=== PATIENT | male | born 1960 | race Caucasian/White ===

== ENCOUNTER 2019-09-15 18:50 | Inpatient (IN) | payer OTHER ==
[~2019-09-15] VITALS: Ht 172.7 cm; Wt 71.9 kg
--- NOTE | 2019-09-15 19:24 | NUR ---
PT BIB FAMILY FOR C/O ABDOMINAL PAIN THAT BEGAN 2 HOURS AGO. PER FAMILY HE HAS HAD TWO EPISIODES OF VOMITING AND NO DIARRHEA. PT DOES PERITONEAL DIALYSIS DAILY EVERY NIGHT AT HOME. PER PT HE HAS NOT DONE HIS DAILY DIALYSIS TODAY. PT REPORTS HE DOES NOT URINATE ANYMORE PT DENIES ANY CHANGE IN DIET RECENTLY. PT IS A/O X4. PT RESPS ARE E/U. PT IS PLACED IN ED GOWN AND HOOKED ONTO CM. AWITING MSE.
--- NOTE | 2019-09-15 20:19 | NUR ---
DR KELLY AT BEDSIDE FOR MSE.
--- NOTE | 2019-09-15 20:36 | NUR ---
PT PROVIDED SMALL URINE SAMPLE AT THIS TIME. DR KELLY AWARE OF PATIENTS OLIGURIA. TO RUN URINE DIP. DAUGHTER TO RETURN HOME TO PROVIDE CAP FOR PD CATHETER IN ORDER TO SEND FLUID FOR TESTING. DR KELLY AWARE.
--- NOTE | 2019-09-15 20:50 | NUR ---
LAB AT BEDSIDE.
[2019-09-15 21:20] LABS: BASOPHIL % 0.1 % (0-2); PLATELET COUNT 261 x10^3mcL (130-400); RED CELL DISTRIBUTION WIDTH 13.7 % (11.5-14.5)
--- NOTE | 2019-09-15 21:24 | NUR ---
PATIENT DENIES PAIN AT THIS TIME. IN POSITION OF COMFORT. IVF REMAINS INFUSING TO LFA.
[2019-09-15 21:45] LABS: BILIRUBIN TOTAL 0.26 mg/dL (0.20-1.00); CALCIUM 8.9 mg/dL (8.5-10.1); CARBON DIOXIDE 26.5 mmol/L (21-32); POTASSIUM SERUM 3.3 mmol/L (3.5-5.1)
[2019-09-15 21:48] LABS: ALBUMIN 2.7 g/dL (3.4-5.0); CREATININE SERUM 11.5 mg/dL (0.7-1.3)
--- NOTE | 2019-09-15 22:04 | NUR ---
PATIENT TAKEN TO CT.
--- NOTE | 2019-09-15 22:38 | NUR ---
FLUID COLLECTED FROM PD CATHETER USING STERILE TECHNIQUE. FLUID IS STRAW COLORED AND CLOUDY. SENT TO LAB FOR FURTHER TESTING. DR LETICIA PAUL.
[2019-09-15 23:50] LABS: APPEARANCE FLUID CLOUDY; SOURCE FLUID PERITONEAL
[2019-09-15 23:51] LABS: COLOR FLUID PALE YELLOW
[2019-09-15 23:54] LABS: RBC FLUID 200 /cumm; WBC FLUID 17850 /cumm
[2019-09-15 23:56] LABS: LYMPHOCYTE FLUID 10 %
--- NOTE | 2019-09-16 00:24 | NUR ---
PT MEDICATED WITH FIRST ANTIBIOTIC AT THIS TIME.
--- NOTE | 2019-09-16 01:08 | NUR ---
REPORT CALLED AND GIVEN TO GUANAKITO JACOBS.
--- NOTE | 2019-09-16 01:17 | NUR ---
RECEIVED PT FROM ED VIA GUERENY, CAME IN DUE TO ABDOMINAL PAIN. AAOX4. DENIES HEADACHE/DIZZINESS. NO SOB NOTED, LUNG SOUNDS CTA. DENIES CHEST PAIN/PRESSURE. C/O 8/ LEFT ABDOMINAL PAIN, DENIES NAUSEA/VOMITING. LAST BM=09/15/19, FORMED. W/ PERITONEAL DIALYSIS ACCESS ON THE LEFT ABDOMEN, W/ GAUZE DRESSING CDI. ABDOMEN IS SOFT AND ROUND. IV SITE PATENT AND INTACT. SIDE RAILS UPX2. CALL LIGHT ON REACH. ENDORSED TO PRIMARY NURSE ARLENE FOR CONTINUITY OF CARE
[2019-09-16 01:26] VITALS: BP 141/79
--- NOTE | 2019-09-16 01:34 | NUR ---
PT RESTING COMFORTABLY IN BED. NO ACUTE DISTRESS NOTED. EVEN AND UNLABORED RESPIRATIONS ON RA. MEDSURG PT. IV PATENT AND INTACT RUNNING VANCO PER EMAR. C/O 05/08 PAIN MEDICATED PER EMAR. PERITONEAL DIALYSIS CATHETER TO LLQ, DRESSING CDI. NO S/S OF INFECTION. INSTRUCTED ON USE OF CALL LIGHT, ORIENTED TO ROOM AND SURROUNDINGS. BED IN LOWEST POSITION. SIDE RAILS UPX2. CALL LIGHT WITHIN REACH. WILL REASSESS FOR PAIN AND CONTINUE TO MONITOR.
--- NOTE | 2019-09-16 02:05 | NUR ---
EVEN AND UNLABORED RESPIRATIONS ON 2LNC, ON TELE# 22 READING SR 94 WITH BBB, ELEVATED TWAVE, ON CONTINUOUS PULSE OX READING 96-97%. SITTER AT BEDSIDE FOR SAFETY. BED IN LOWEST POSITION. SEIZURE PRECAUTION IN PLACE. CALL LIGHT WITHIN REACH. WILL CONTINUE TO MONITOR.
[2019-09-16 02:10] LABS: CHOLESTEROL/HDL RATIO 3.5
[2019-09-16 02:12] LABS: T3 TOTAL 1.15 ng/mL
[2019-09-16 03:11] LABS: FREE T4 1.23 ng/dL (0.76-1.46); FREE THYROXINE INDEX 3.2 ug/dL (1.4-4.5); T4(THYROXINE) 8.9 ug/dL (4.7-13.3)
[2019-09-16 04:50] VITALS: BP 134/68
[2019-09-16 06:41] LABS: BASOPHIL % 0.2 % (0-2); PLATELET COUNT 241 x10^3mcL (130-400); RED CELL DISTRIBUTION WIDTH 13.9 % (11.5-14.5)
[2019-09-16 06:50] LABS: CALCIUM 8.4 mg/dL (8.5-10.1); CARBON DIOXIDE 23.3 mmol/L (21-32); MAGNESIUM 1.5 mg/dL (1.8-2.4); POTASSIUM SERUM 3.8 mmol/L (3.5-5.1)
[2019-09-16 06:52] LABS: CREATININE SERUM 11.9 mg/dL (0.7-1.3)
--- NOTE | 2019-09-16 07:05 | NUR ---
RECEIVED PT FROM NIGHT NURSE. PT IS LAYING DOWN IN BED WITH HOB UP. PT LOOKS TO BE IN NO ACUTE DISTRESS AT THIS TIME AND DENIES ANY PAIN. RESPIRATIONS EVEN AND UNLABORED ON ROOM AIR. IV SITE PATENT WITH NO SIGNS OF ERYTHEMA OR SWELLING. PERITONEAL DIALYSIS SITE TO [facility]. CALL LIGHT WITHIN REACH. WILL CONTINUE TO MONITOR.
--- NOTE | 2019-09-16 07:29 | NUR ---
PT SLEPT IN INTERVALS THROUGHOUT THE SHIFT. ALL NEEDS TENDED TO AND MET. ALL SCHEDULED MEDICATIONS GIVEN. C/O ABD PAIN MEDICATED PER EMAR. IVL PATENT AND INTACT. PERITONEAL DIALYSIS CATHETER IN PLACE, DRESSING CDI. WILL ENDORSE TO ONCOMING SHIFT.
[2019-09-16 08:33] VITALS: BP 142/73
--- NOTE | 2019-09-16 11:55 | NUR ---
PT IS LAYING DOWN IN BED WITH HOB UP. PT LOOKS TO BE IN NO ACUTE DISTRESS AT THIS TIME AND DENIES ANY PAIN. FAMILY MEMBER AT BEDSIDE. WILL CONTINUE TO MONITOR
[2019-09-16 12:25] VITALS: BP 136/73
[2019-09-16 16:45] VITALS: BP 139/65
--- NOTE | 2019-09-16 18:25 | NUR ---
DIALYSIS NURSE AT BEDSIDE. PROVIDED WITH ORDER AND LABS. PT LOOKS TO BE IN NO ACUTE DISTRESS AT THIS TIME. WILL CONTINUE TO MONITOR.
--- NOTE | 2019-09-16 18:52 | NUR ---
PT IS LAYING DOWN IN BED WITH HOB UP RESTING. PT IS RECEIVING PD AT THIS TIME, DIALYSIS NURSE AT BEDSIDE. RESPIRATIONS EVEN AND UNLABORED ON ROOM AIR. IV SITE PATENT WITH NO SIGNS OF ERYTHEMA OR SWELLING. PT STATES PAIN TO ABD IS TOLERABLE AT THIS TIME. PD CATHETER PRESENT TO [facility] AND IS PATENT. FAMILY MEMBER AT BEDSIDE. CALL LIGHT WITHIN REACH. WILL ENDORSE TO ONCOMING SHIFT.
[2019-09-16 19:34] VITALS: BP 127/64
--- NOTE | 2019-09-16 20:37 | NUR ---
RECEIVED PT IN BED AAOX4 , FIJIAN SPEAKING ONLY , FAMILY AT THE BEDSIDE AT THE MOMENT ,LUNG SOUNDS CTA , ABD SOFT TENDER TO TOUCH , BS ACTIVE X4, PD CATHETER PATENT , FOR HD DAILY , [T WITLL HAVE MANUAL HD TODAY PER HD NURSE . HL PATENT , FLUSHING WELL .
--- NOTE | 2019-09-17 04:21 | NUR ---
PT'S IN BED WITH EYES CLOSED .
[2019-09-17 05:07] VITALS: BP 142/71
--- NOTE | 2019-09-17 05:19 | NUR ---
AT 2230 HD NURSE DRAINED PT AND FILL PT ORDERED .
--- NOTE | 2019-09-17 05:56 | NUR ---
I HAVE REVIEWED THE DATA COLLECTION BY BRAYAN (NAME):ALEJANDRO LOO ENTERED ON (DATE/TIME):09/16 I CONCUR WITH THE DATA AND ANY EXCEPTIONS OR COMMENTS ARE LISTED BELOW:
[2019-09-17 06:28] LABS: BASOPHIL % 0.4 % (0-2); PLATELET COUNT 253 x10^3mcL (130-400); RED CELL DISTRIBUTION WIDTH 13.4 % (11.5-14.5)
--- NOTE | 2019-09-17 06:31 | NUR ---
NO CHANGES OF CONDITION NOTED , ALL DUE MEDS GIVEN NO REACTION NOTED, GL PATENT , PD TUBING INTACT ,[facility] HD NURSE IS AWARE THAT PT HAS 2 EXCHANGES PD , STATED ILL BE THERE AT 10AM ,PT'LL BE OK NOT TO WORRY , WILL ENDORSE TO AM NURSE TO F/U .PT DENY PAIN AT THE MOMENT ,
[2019-09-17 07:18] LABS: CALCIUM 8.8 mg/dL (8.5-10.1); CARBON DIOXIDE 23.7 mmol/L (21-32); PHOSPHOROUS 6.9 mg/dL (2.5-4.9); POTASSIUM SERUM 3.4 mmol/L (3.5-5.1)
[2019-09-17 07:22] LABS: CREATININE SERUM 12.9 mg/dL (0.7-1.3)
[2019-09-17 07:23] VITALS: BP 149/71
--- NOTE | 2019-09-17 09:16 | NUR ---
RECIEVED REPORT FROM NOC NURSE. ATIENT CURRENTLY AWAKE, ALERT, AND IN BED. PATIENT IS TRISTANIAN SPEAKING. NO REPORT OF PAIN AT THIS TIME. IV TO THE LEFT FOREARM AND IS SALINE LOCKED. BED IN THE LOW POSITION. SAFETY PRECAUTIONS IN PLACE. CALL LIGHT WITHIN REACH.
[2019-09-17 10:56] VITALS: BP 151/76
[2019-09-17 11:32] VITALS: BP 156/76
[2019-09-17 16:23] VITALS: BP 135/75
--- NOTE | 2019-09-17 17:50 | NUR ---
PATIENT CURRENTLY RECIEVING PD. PD FLUID SPECIMEN OBTAINED AND SENT TO LAB FOR CULTURE. NO REPORT OF PAIN AT THIS TIME. DAUGHTER AT BEDSIDE. WILL CONTINUE TO TREAT FOR PAIN AND ENDORSE FURTHER CARE TO NIGHT NURSE.
--- NOTE | 2019-09-17 19:20 | NUR ---
REC'D PT FROM DAY NURSE. DAUGHTER AT BEDSIDE. PT RESTING IN BED. AAOX4, SPEECH CLEAR, FOLLOWS COMMANDS. MED SURG, NO TELE. DENIES CP, DIZZINESS, OR PALPITATIONS. DENIES RESP DISTRESS OR SOB. BREATHING EVEN/UNLABORED ON RA. NO EDEMA NOTED. ABD SOFT/ROUND. DENIES PAIN AT REST. C/O ABD TENDERNESS UPON PALPATION. PD IN PROGRESS TO LLQ PD CATHETER. RECEIVED NIGHTLY PD. ANURIC. IV TO LFA FLUSED AND PATENT, SITE WNL. CALL LIGHT WITHIN REACH, BED AT LOWEST POSITION. WILL ENDORSE TO DAY NURSE.
[2019-09-17 20:47] VITALS: BP 152/79
--- NOTE | 2019-09-18 00:50 | NUR ---
PD COMPLETED- 500 ML OUT. PT C/O LLQ SEVERE ABD PAIN 10/10. MORPHINE GIVEN PER ORDER. CALL LIGHT WITHIN REACH, BED AT LOWEST POSITION. WILL CONTINUE TO MONITOR.
--- NOTE | 2019-09-18 02:04 | NUR ---
PT RESTING IN BED WITH EYES CLOSED. SNORING. NO SIGNS OF DISTRESS OR PAIN NOTED. BREATHING EVEN/UNLABORED ON RA. CALL LIGHT WITHIN REACH, BED AT LOWEST POSITION. WILL CONTINUE TO MONITOR.
[2019-09-18 05:05] VITALS: BP 155/85
--- NOTE | 2019-09-18 05:52 | NUR ---
PT RESTING IN BED WITH EYES CLOSED. AWAKENS WITH VERBAL STIMULI. BREATHING EVEN/UNLABORED ON RA. PT DENIES ABD PAIN AT THIS TIME. NO SIGNIFICANT CHANGES. CALL LIGHT WITHIN REACH, BED AT LOWEST POSITION. WILL ENDORSE TO DAY NURSE.
[2019-09-18 06:05] LABS: BASOPHIL % 0.2 % (0-2); PLATELET COUNT 289 x10^3mcL (130-400); RED CELL DISTRIBUTION WIDTH 13.6 % (11.5-14.5)
[2019-09-18 07:04] LABS: CALCIUM 8.8 mg/dL (8.5-10.1); CARBON DIOXIDE 25.6 mmol/L (21-32); PHOSPHOROUS 6.1 mg/dL (2.5-4.9); POTASSIUM SERUM 3.2 mmol/L (3.5-5.1)
[2019-09-18 07:18] LABS: CREATININE SERUM 12.5 mg/dL (0.7-1.3)
--- NOTE | 2019-09-18 07:49 | NUR ---
RECIEVED REPORT FROM [facility] NURSE. PATIENT RECIEVED PERITONIAL DIALYSIS THROUGHOUT THE NIGHT. OUTPUT FROM PD IS 500 ML. PATIENT CURRENTLY AWAKE ALERT AND ORIENTED. NO REPORT OF PAIN AT THIS TIME. PD CULTURE PENDING. PATIENT RECIEVED IV ROCEPHIN AN VANCO. IV TO LEFT FOREARM. NO REPORT OF PAIN AT THIS TIME. BED IN THE LOW POSITION. SAFETY PRECAUTIONS IN PLACE.
[2019-09-18 08:43] VITALS: BP 167/80
[2019-09-18 12:12] VITALS: BP 149/80
--- NOTE | 2019-09-18 15:43 | NUR ---
NEW IV PLACED TO RIGHT FOREARM. PATIENT TOLERATED WELL, CURRENTLY INFUSING VANCO.
[2019-09-18 16:52] VITALS: BP 155/81
--- NOTE | 2019-09-18 17:59 | NUR ---
PATIENT CURRENTLY AWAKE AND IN BED. PATIENT NOT WANTING TO EAT DINNER. POOR APETITE. POTASSIUM LEVEL 3.2 COVERED WITH PO POTASSIUM. ABD ULTRASOUND AND LUE ULTRASOUND PERFORMED THROUGHOUT SHIFT. RESULTS PENDING. IV MOVED TO RIGHT FOREARM AND CURRENTLY ON TKO. CONSTIPATION RESOLVED AFTER ADMINISTRATION OF MILK OF MAGNESIA AND MIRALAX. NO REPORT OF PAIN AT THIS TIME. BED IN THE LOW POSITION. CALL LIGHT WITHIN REACH.
--- NOTE | 2019-09-18 19:30 | NUR ---
REC'D PT FROM DAY NURSE. DAUGHTER AT BEDSIDE. PT RESTING IN BED. AAOX4, SPEECH CLEAR, FOLLOWS COMMANDS. MED SURG, NO TELE. DENIES CP, DIZZINESS, OR PALPITATIONS. DENIES RESP DISTRESS OR SOB. BREATHING EVEN/UNLABORED ON RA. ABD SOFT/ROUND. DENIES ABD PAIN OR N/V. REPORTS SOME TENDERNESS UPON PALPATION. NO EDEMA NOTED. SKIN INTACT. ANURIC. DIALYSIS NURSE AT BEDSIDE TO INITIATE PD FOR TONIGHT. LLQ PD CATH IN PLACE, SITE WNL. AMBULATORY. IV TO RFA FLUSHED AND PATENT, SITE WNL. CALL LIGHT WITHIN REACH, BED AT LOWEST POSITION. WILL CONTINUE TO MONITOR.
[2019-09-18 20:22] VITALS: BP 155/101
[2019-09-18 21:58] VITALS: BP 139/81
--- NOTE | 2019-09-19 00:22 | NUR ---
PT RESTING IN BED WITH EYES CLOSED. NO SIGNS OF DISTRESS OR PAIN NOTED. BREATHING EVEN/UNLABORED ON RA. PD IN PROGRESS. CALL LIGHT WITHIN REACH, BED AT LOWEST POSITION. WILL CONTINUE TO MONITOR.
[2019-09-19 05:49] VITALS: BP 165/81
--- NOTE | 2019-09-19 05:58 | NUR ---
PT AWAKE AND RESTING IN BED. C/O LLQ 4/10 PAIN, NORCO GIVEN. PD STILL IN PROGRESS. PER MONITOR, 12 MIN LEFT. NO SIGNIFICANT CHANGES DURING SHIFT. CALL LIGHT WITHIN REACH, BED AT LOWEST POSITION. WILL ENDORSE TO DAY NURSE.
--- NOTE | 2019-09-19 07:00 | NUR ---
RECIEVED REPORT FROM [facility] NURSE. PATIENT ALERT AND ORIENTED. 20 GUAGE IV TO RIGHT FOREARM CURRENTLY SALINE LOCKED. NO REPORT OF PAIN AT THIS TIME. LAST PAIN MEDICATION GIVEN BY [facility] NURSE AT 0530. LLQ PD CATH DRY AND INTACT. TOTAL DIALYSIS OUTPUT REPORTED BY DIALYSIS NURSE: 547 ML. SCD COMPRESSIONS PLACED ON PATIENT. PATIENT ALSO ENCOURAGED TO AMBULATE. BED IN THE LOW POSITION. SAFETY PRECAUTIONS IN PLACE. WILL CONTINUE TO MONITOR.
[2019-09-19 07:02] LABS: BASOPHIL % 0.4 % (0-2); PLATELET COUNT 296 x10^3mcL (130-400); RED CELL DISTRIBUTION WIDTH 13.5 % (11.5-14.5)
[2019-09-19 07:35] LABS: CALCIUM 8.7 mg/dL (8.5-10.1); CARBON DIOXIDE 26.3 mmol/L (21-32); PHOSPHOROUS 5.2 mg/dL (2.5-4.9); POTASSIUM SERUM 3.4 mmol/L (3.5-5.1)
[2019-09-19 08:31] VITALS: BP 107/61
[2019-09-19 12:22] VITALS: BP 114/68
--- NOTE | 2019-09-19 12:55 | NUR ---
Initial Nutrition Assessment: Dx: abd pain, peritonitis PMHx: ESRD on PD every day, DM, HTN PSHx: foot surgery in childhood Labs: (09/19) Na 134 L, K 3.4 L, Glu 159 H, BUN 71 H, Cr 12 H, A1c 5.5, H/H 10.4/31. Meds: Colace, D50%/water, Humulin R, hydralazine, klor-con, mom, miralax, morphine sulfate, norco, Norvasc, phosLo, Rocephin, vancocin, vancomycin, Zofran Diet: [facility] PO intake since admission: (09/16) B: 80%, L: 90%, D: 85%, (09/17) B: 100%, L: 60%, D: 90%, (09/18) B: 50%, D: 0%; overall average: 79% x 7 meals. This provides 1351 kcal and 81 gm protein to meet 64% est kcal and 96% est protein needs; kcal inadequate, protein adequate. Ht: 172.72 cm / 68 inches / 5'8" Wt: 69.853 kg / 154 pounds BMI: 23.4 kg/m2, normal IBW: 154 pounds / 70 kg %IBW: 100% UBW: unable to obtain Age: 59 Food Allergies: unable to obtain Skin: intact Carmelo: 20 Edema: none noted GI: formed, abd soft, flat, bowel sounds active, peritoneal dialysis cath to LLQ, dressing CDI, no s/s of infection, c/o 8/10 abd pain, no c/o NVDA. Last BM: 09/15/19 Pt admitted with dx: abdominal pain likely 2/2 peritonitis likely 2/2 peritoneal residual dialysate, ESRD, hypokalemia, severe malnutrition, normocytic anemia, DM, HTN, DVT prophylaxis. RD Note (09/19): Pt declined interview with RDN at this time. Pt has a Consult - Malnutrition Estimated Nutritional Needs Based on actual body weight of 70 kg. Energy: 7375-1354 kcal/d (30-35 kcal/kg for ESRD on PD) Protein: 84-105 gm/d (1.2-1.5 gm/kg for ESRD on PD) Fluid: 0698-5658 mL/d (1 mL/kcal) or per MD. Nutrition Diagnosis 1. Impaired nutrient utilization related to renal dysfunction as evidenced by dx of ESRD on PD, BUN 71 H, Cr 12 H on 09/19/19. Inadequate energy intakes related to decrease appetite as evidenced by Pt meeting < 75% estimated kcal needs. Intervention/RDN Recommendation(s): 1. Continue on CCHO diet as tolerated. 2. If Pt's PO intakes continue to be 50% or <, consider adding ONS Glucerna 1 carton QD with breakfast to provide additional 220 kcal to better meet kcal needs. Monitor/Evaluate Goal: Intake via PO intakes to meet at least 75% of estimated needs with acceptable tolerance within 2-3 days. Monitor: PO intakes and/or nutrition support tolerance, Labs, GI function, Skin integrity, Weights. F/U in 3-5 days as moderate risk (09/22-)
[2019-09-19 17:07] VITALS: BP 149/77
--- NOTE | 2019-09-19 18:36 | NUR ---
PATIENT CURRENTLY IN ROOM EATING DINNER WITH DAUGHTER AT BEDSIDE. PATIENT SCHEDULED TO HAVE DIALYSIS LATER IN THE NIGHT. PATIENT TO BE CONTINUED ON PROPHYLACTIC ANTIBIOTICS, PRELIMINARY PD CULTURE NEGATIVE. WILL ENDORSE CARE TO NOC NURSE.
[2019-09-19 19:20] VITALS: BP 149/86
--- NOTE | 2019-09-19 19:20 | NUR ---
REC'D PT FROM DAY NURSE. DAUGHTER AT BEDSIDE. PT RESTING IN BED. AAOX4, SPEECH CLEAR, FOLLOWS COMMANDS. MED SURG, NO TELE. DENIES CP, DIZZINESS, OR PALPITATIONS. DENIES RESP DISTRESS OR SOB. BREATHING EVEN/UNLABORED ON RA. ABD SOFT/ROUND. C/O TENDERNESS TO ABD UPON PALPATION. DENIES PAIN AT REST OR N/V. ANURIC. NIGHTLY PD. LLQ PD CATH, SITE WNL. WAITING FOR DIALYSIS NURSE TO COME TONIGHT AND INITIATE PD. REPORTS MILD BACK PAIN, TOLERABLE AT THIS TIME. IV TO LFA FLUSHED AND PATENT, SITE WNL. CALL LIGHT WITHIN REACH, BED AT LOWEST POSITION. WILL CONTINUE TO MONITOR.
--- NOTE | 2019-09-19 20:34 | NUR ---
PT C/O 02/05 ABD AND BACK PAIN. NORCO GIVEN PER ORDER. FOLLOWED UP WITH [facility]AME[facility] REGARDING PD TONIGHT- PER [facility]AME[facility], SOMEONE SHOULD BE COMING SOON. PT AND DAUGHTER MADE AWARE.
--- NOTE | 2019-09-19 21:18 | NUR ---
FABIANA, DIALYSIS NURSE, AT BEDSIDE TO INITIATE PERITONEAL DIALYSIS. 1GM FORTAZ AND AM LABS GIVEN. NURSE STATED DR. HASKINS WANTS TO SEND ANOTHER PERITONEAL FLUID CX TO LAB. WILL ORDER.
--- NOTE | 2019-09-19 21:47 | NUR ---
PD INITIATED. WILL COLLECT PERITONEAL DRAINAGE SAMPLE IN ABOUT AN HOUR ONCE IT'S DRAINING. CURRENTLY FILLING. DAUGHTER AT BEDSIDE. PT DENIES ANY PAIN S/P NORCO. WILL CONTINUE TO MONITOR.
--- NOTE | 2019-09-19 23:44 | NUR ---
PD IN PROGRESS. 20 ML DIALYSATE FLUID COLLECTED- SLIGHTY CLOUDY AND OFF WHITE IN COLOR.
[2019-09-20 05:49] VITALS: BP 160/79
--- NOTE | 2019-09-20 06:12 | NUR ---
PT AWAKE AND SITTING AT THE SIDE OF THE BED. BREATHING EVEN/UNLABORED ON RA. DENIES ANY ABD PAIN AT THIS TIME. NO BM TONIGHT. PD STILL IN PROGRESS. NO SIGNIFICANT CHANGES DURING SHIFT. CALL LIGHT WITHIN REACH, BED AT LOWEST POSITION. WILL ENDORSE TO DAY NURSE.
[2019-09-20 06:58] VITALS: BP 152/83
--- NOTE | 2019-09-20 07:05 | NUR ---
RECEIVED PT FROM MONTY RN. PT AA/OX4 LAYING IN BED. NO S/S OF ACUTE DISTRESS. NO SOB ON ROOM AIR. IV WNL TO RFA, NO REDNESS, NO SWELLING, NO INFILTRATION. SALINE LOCKED. DENIES PAIN. NO ABD. PAIN AT THIS TIME. NO N/V. NO CHEST PAIN. MED SURG. SPEAKS ISRAELI. PERITONEAL DIALYSIS RUNNING AT THIS TIME TO LLQ ABD. CATHETER. CATHETER IN TACT. DRESSING CDI. BED IN LOW POSITION. CALL LIGHT WITHIN REACH. INSTRUCTED TO USE CALL LIGHT TO CALL FOR ASSISTANCE PRN. PT VERBALIZED UNDERSTANDING. WILL CONT. TO MONITOR.
[2019-09-20 07:13] LABS: CALCIUM 8.7 mg/dL (8.5-10.1); CARBON DIOXIDE 29.2 mmol/L (21-32); POTASSIUM SERUM 3.7 mmol/L (3.5-5.1)
[2019-09-20 07:20] VITALS: BP 161/78
[2019-09-20 07:21] LABS: BASOPHIL % 0.5 % (0-2); PLATELET COUNT 313 x10^3mcL (130-400); RED CELL DISTRIBUTION WIDTH 13.9 % (11.5-14.5)
[2019-09-20 07:51] LABS: CREATININE SERUM 11.7 mg/dL (0.7-1.3)
--- NOTE | 2019-09-20 09:00 | NUR ---
BP 161/78, OUTSIDE SALES ADVERTISING EXECUTIVE VANDA AWARE. NO CHANGE IN ORDERS. AA/OX4. NO STANLEY. NO DIZZINESS. NO CHEST PAIN. FACE SYMMETRICAL. SPEECH CLEAR. WILL CONT. TO MONITOR.
--- NOTE | 2019-09-20 10:45 | NUR ---
PT LAYING IN BED. AA/OX4. NO S/S OF ACUTE DISTRESS. RECEIVED PD DURING NOC SHIFT. OUTPUT 683CC. NO N/V. NO SOB ON ROOM AIR. DENIES PAIN. C/O CONSTIPATION, IT INTERN VANDA AWARE. GIVEN MED. SEE MAR. CALM/COOPERATIVE. BED IN LOW POSITION. CALL LIGHT WITHIN REACH. WILL CONT. TO MONITOR.
[2019-09-20 12:17] VITALS: BP 149/83
[2019-09-20 16:11] VITALS: BP 145/85
--- NOTE | 2019-09-20 18:15 | NUR ---
PT C/O OF PAIN TO RUQ ABD. WORSE WHILE LAYING IN BED. RELIEVED BY AMBULATING/MEDICATION. GIVEN PO PAIN MED SEE MAR. RATES 05/08. INTERMITTENT. ENCOURAGED PATIENT TO AMBULATE. PT VERBALIZED UNDERSTANDING. DAUGHTER AT BEDSIDE. PT AA/OX4. NO S/S OF ACUTE DISTRESS. NO SOB ON ROOM AIR. IV WNL, SALINE LOCKED. CALM/COOPERATIVE. DENIES N/V. BED IN LOW POSITION. CALL LIGHT WITHIN REACH. WILL ENDORSE TO ONCOMING SHIFT.
--- NOTE | 2019-09-20 19:05 | NUR ---
CARE ASSUMED FROM OUTGOING RN. PT RESTING COMFORTABLY IN BED. FAMILY AT BEDSIDE. NO ACUTE DISTRESS NOTED. EVEN AND UNLABORED RESPIRATIONS ON RA. MEDSURG PT. IVL INTACT. PERITONEAL DIALYSIS CATHETER IN PLACE, DRESSING CDI. C/O INTERMITTENT ABD PAIN, WILL MEDICATED PER EMAR. PERITONEAL DIALYSIS SCHEDULED FOR TONIGHT. BED IN LOWEST POSITION. SIDE RAILS UPX2. CALL LIGHT WITHIN REACH. WILL CONTINUE TO MONITOR.
[2019-09-20 20:50] VITALS: BP 132/72
--- NOTE | 2019-09-21 01:02 | NUR ---
PT RESTING COMFORTABLY IN BED. NO ACUTE DISTRESS NOTED. EVEN AND UNLABORED RESPIRATIONS ON RA. IVL INTACT. PERITONEAL DIALYSIS ONGOING. NO C/O PAIN AT THIS TIME. BED IN LOWEST POSITION. SIDE RAILS UPX2. CALL LIGHT WITHIN REACH. WILL CONTINUE TO MONITOR.
[2019-09-21 05:01] LABS: SOURCE FLUID PERITONEAL
[2019-09-21 05:02] LABS: APPEARANCE FLUID HAZY; COLOR FLUID PALE YELLOW; LYMPHOCYTE FLUID 30 %; RBC FLUID 50 /cumm; WBC FLUID 220 /cumm
[2019-09-21 06:13] VITALS: BP 161/76
--- NOTE | 2019-09-21 06:19 | NUR ---
PT SLEPT IN INTERVALS THROUGHOUT THE SHIFT. ALL NEEDS TENDED TO AND MET. ALL SCHEDULED MEDICATIONS GIVEN. NO C/O PAIN. PD ONGOING, LLQ PD CATH PATENT, DRESSING CDI. BLOOD SUGARS, 205 AND 182, COVERED PER SLIDING SCALE. BED IN LOWEST POSITION. SIDE RAILS UPX2. CALL LIGHT WITHIN REACH. WILL ENDORSE TO ONCOMING SHIFT.
[2019-09-21 06:32] LABS: PLATELET COUNT 328 x10^3mcL (130-400); RED CELL DISTRIBUTION WIDTH 13.2 % (11.5-14.5)
[2019-09-21 07:07] LABS: CALCIUM 8.8 mg/dL (8.5-10.1); CARBON DIOXIDE 28.8 mmol/L (21-32); POTASSIUM SERUM 3.8 mmol/L (3.5-5.1)
--- NOTE | 2019-09-21 07:29 | NUR ---
RECEIVED PT LYING IN BED WITH EYES CLOSED. BREATHING EQUAL/ UNLABORED ON RA. NO ACUTE PAIN/ DISTRESS. LLQ PD CATHETER IN PLACE. NO REDNESS/ SWELLING TO IV SITES. BED IN LOW POSITION, CALL LIGHT IN REACH, SAFETY PRECAUTIONS IN PLACE. WILL CONTINUE TO MONITOR
[2019-09-21 07:32] LABS: CREATININE SERUM 11.3 mg/dL (0.7-1.3)
--- NOTE | 2019-09-21 11:40 | NUR ---
PT LYING IN BED A/A. BREATHING EQUAL/UNLABORED ON RA. NO ACUTE PAIN/ DISTRESS. NO REDNESS/ SWELLING TO IV SITE. LLQ PD CATHETER IN PLACE. BED IN LOW POSITION, CALL LIGHT IN REACH, SAFETY PRECAUTIONS IN PLACE. WILL CONTINUE TO MONITOR
[2019-09-21] MEDS ORDERED: NOR5 PO (12:27)
[2019-09-21] MEDS ORDERED: PHOS PO (12:28)
[2019-09-21] MEDS ORDERED: VAN1I IV (12:28)
[2019-09-21] MEDS ORDERED: FORTAZ1 G1 IV (12:29)
[2019-09-21 13:22] VITALS: BP 133/77
[2019-09-21 13:23] VITALS: BP 169/86
--- NOTE | 2019-09-21 13:49 | NUR ---
SPOKE TO MOE DC AND SHE IS AWARE OF HIGH BLOOD PRESSURE AND STATED IT IS OKAY FOR PT TO BE DISCHARGED
--- NOTE | 2019-09-21 15:37 | NUR ---
PT DC'D HOME, A/A, ORIENTED X 4, BREATHING EQUAL/UNLABORED ON RA, NO ACUTE PAIN/ DISTRESS, LLQ PERITONEAL DIALYSIS CATHETER INTACT, DRESSING CDI. DISCHARGE INTSTRUCTIONS, EDUCATION, F/U APPT, AND NEW RX DISCUSSED WITH PT AND HIS DAUGHTER, THEY BOTH VERBALIZED UNDERSTANDING. DIALYSIS APPT ALSO DISCUSSED WITH PT AND HIS DAUGHTER, THEY BOTH VERBALIZED UNDERSTANDING. IV REMOVED WITH CATHETER INTACT, SITE WNL. PT BROUGHT DOWN TO LOBBY IN W/C, ACCOMPANIED BY FAMILY SUPPORT SPECIALIST AND DAUGHTER. ALL BELONGINGS WITH PT
== END 2019-09-21 15:37 | disposition home or self-care (01) | DRG 248 ==
LOC: ED 18:50 → MU 09-16 00:08
PROVIDERS: Emergency Medicine; Internal Medicine; Internal Medicine Nephrology; ADMIT Family Medicine
PROC: 3E1M39Z Irrigation of Peritoneal Cavity using Dialysate, Percutaneous Approach (ICD-10-PCS; principal; 2019-09-16)
PROC: 3E1M39Z Irrigation of Peritoneal Cavity using Dialysate, Percutaneous Approach (ICD-10-PCS; 2019-09-17)
PROC: 3E1M39Z Irrigation of Peritoneal Cavity using Dialysate, Percutaneous Approach (ICD-10-PCS; 2019-09-18)
PROC: 3E1M39Z Irrigation of Peritoneal Cavity using Dialysate, Percutaneous Approach (ICD-10-PCS; 2019-09-19)
PROC: 3E1M39Z Irrigation of Peritoneal Cavity using Dialysate, Percutaneous Approach (ICD-10-PCS; 2019-09-20)
DX: K65.8 Other peritonitis (principal); E43 Unspecified severe protein-calorie malnutrition; E11.22 Type 2 diabetes mellitus with diabetic chronic kidney disease; I12.0 Hypertensive chronic kidney disease with stage 5 chronic kidney disease or end stage renal disease; E87.6 Hypokalemia; D63.8 Anemia in other chronic diseases classified elsewhere; E83.39 Other disorders of phosphorus metabolism; E83.42 Hypomagnesemia; N18.6 End stage renal disease; Z99.2 Dependence on renal dialysis; Z79.84 Long term (current) use of oral hypoglycemic drugs
CPT/HCPCS: 82962; 84439; G0378; J0696; J0713; J1200; J2270; J2405; J3370; J3475; J7040; J7060; Q0092

== ENCOUNTER 2019-10-22 09:53 | Emergency (ER) | payer OTHER ==
[~2019-10-22] VITALS: Ht 162.6 cm; Wt 65.5 kg
[~2019-10-22 09:53] MED LIST: FORTAZ1 G1 IV; NOR5 PO; PHOS PO; VAN1I IV
[2019-10-22 10:35] VITALS: Ht 162.6 cm; Wt 65.5 kg
[2019-10-22 11:05] LABS: PLATELET COUNT 192 x10^3mcL (130-400); RED CELL DISTRIBUTION WIDTH 14.4 % (11.5-14.5)
[2019-10-22 11:06] LABS: BASOPHIL % 0 % (0-2)
[2019-10-22 12:05] LABS: POTASSIUM SERUM 3.6 mmol/L (3.5-5.1)
[2019-10-22 12:06] LABS: CARBON DIOXIDE 28.2 mmol/L (21-32)
[2019-10-22 12:10] LABS: ALBUMIN 2.2 g/dL (3.4-5.0); CALCIUM 8.3 mg/dL (8.5-10.1); CREATININE SERUM 10.4 mg/dL (0.7-1.3); TOTAL PROTEIN, SERUM 4.8 g/dL (6.4-8.2)
[2019-10-22 12:11] LABS: BILIRUBIN TOTAL 0.5 mg/dL (0.20-1.00)
[2019-10-22 15:57] VITALS: BP 110/75
== END 2019-10-22 15:57 | disposition home or self-care (01) ==
LOC: ED 09:53
DX: L29.9 Pruritus, unspecified (principal); R42 Dizziness and giddiness; E11.22 Type 2 diabetes mellitus with diabetic chronic kidney disease; I12.0 Hypertensive chronic kidney disease with stage 5 chronic kidney disease or end stage renal disease; N18.6 End stage renal disease; Z99.2 Dependence on renal dialysis
CPT/HCPCS: J1200; J3370